=== PATIENT | female | born 1950 | race Caucasian/White ===

== ENCOUNTER → 2020-05-14 13:05 | Outpatient (CLI) | payer MEDICARE, OTHER, SELFPAY ==
--- NOTE | ~2020-05-14 | MM_ITS ---
EXAMINATION: MM screening andres BI w lori HISTORY: Screening TECHNIQUE: Craniocaudal and mediolateral oblique 3-D tomosynthesis images were obtained and synthetic 2-D images were generated. CAD analysis was submitted and interpreted. COMPARISON: Comparison to multiple prior studies sequentially, with oldest reviewed study dated 01/2014. BREAST PARENCHYMAL COMPOSITION: There are scattered areas of fibroglandular density. FINDINGS: There is no evidence of suspicious mass, calcification, or architectural distortion to sugg est malignancy in either breast. There has been no suspicious interval change. IMPRESSION: 1. No mammographic evidence of malignancy. 2. Recommend routine screening mammography in one year. BI-RADS Category 1: Negative Reviewed, dictated and finalized at location D.
== END ==
PROVIDERS: Visit Provider Physician Assistant Medical
DX: Z12.31 Encounter for screening mammogram for malignant neoplasm of breast (principal)
CPT/HCPCS: 77063; 77067

== ENCOUNTER → 2021-07-14 11:15 | Outpatient (CLI) | payer MEDICARE, OTHER, SELFPAY ==
--- NOTE | ~2021-07-14 | MM_ITS ---
EXAMINATION: MM screening andres BI w lori HISTORY: Screening mammogram, family history of breast cancer in her mother. TECHNIQUE: Craniocaudal and mediolateral oblique 3-D tomosynthesis images were obtained and synthetic 2-D images were generated. CAD analysis was submitted and interpreted. COMPARISON: 05/14/2020, 01/16/2019, 12/12/2017 BREAST PARENCHYMAL COMPOSITION: There are scattered areas of fibroglandular density. FINDINGS: There is no evidence of suspicious mass, calcification, or architectural distortion to sugg est malignancy in either breast. There has been no suspicious interval change. IMPRESSION: 1. No mammographic evidence of malignancy. 2. Recommend routine screening mammography in one year. BI-RADS Category 1: Negative Reviewed, dictated and finalized at location A.
== END ==
PROVIDERS: PCP Family Medicine; Visit Provider Family Medicine
DX: Z12.31 Encounter for screening mammogram for malignant neoplasm of breast (principal)
CPT/HCPCS: 77063; 77067

== ENCOUNTER → 2022-04-20 13:18 | Outpatient (CLI) | payer MEDICARE, OTHER, SELFPAY ==
--- NOTE | ~2022-04-20 | DEXA_ITS ---
Bone Density Report Name: TREE NUNN Age: 71 Sex: Female Ethnicity: White Date of : 1950 Indication: osteopenia; Referring Provider: Elenita Lim Study: Bone densitometry was performed. Exam Date: April 20, 2022 Accession number: [id number] Bone Density: Region BMD T-score Z-score Classification AP Spine (L1-L4) 0.807 -2.2 -0.1 Osteopenia Femoral Neck (Left) 0.720 -1.2 0.6 Osteopenia Total Hip (Left) 0.898 -0.4 1.1 Normal Femoral Neck (Right) 0.743 -1.0 0.8 Normal Total Hip (Right) 0.957 0.1 1.6 Normal Total Hip Mean 0.928 -0.2 1.4 Normal World Health Organization criteria for BMD impression classify patients as: Normal (T-score at or above -1.0), Osteopenia (T-score between -1.0 and -2.5), or Osteoporosis (T-score at or below -2.5). 10-year Fracture Risk(1): Major Osteoporotic Fracture 8.7% Hip Fracture 1.5% Reported Risk Factors: [place] (), Neck BMD=0.720, BMI=30.8, smoking (1) FRAX(R) Version 3.08. Fracture probability calculated for an untreated patient. Fracture probability may be lower if the patient has received treatment. Previous Exams: Region Exam Age BMD T-score BMD Change BMD Change Date g/cm2 vs Baseline vs Previous AP Spine(L1-L4) 04/20/2022 71 0.807 -2.2 -0.008 -0.103* 01/17/2019 68 0.910 -1.2 0.095* 0.095* 10/29/2016 65 0.815 -2.1 Total Hip(Left) 04/20/2022 71 0.898 -0.4 0.010 0.025 01/17/2019 68 0.873 -0.6 -0.015 -0.015 10/29/2016 65 0.888 -0.4 Total Hip(Right) 04/20/2022 71 0.957 0.1 0.027 0.026 01/17/2019 68 0.931 -0.1 0.001 0.001 10/29/2016 65 0.930 -0.1 *Denotes significance at 95% confidence level, LSC for AP Spine = 0.022 g/cm2, LSC for Total Hip = 0.027 g/cm2 Clinical Information Provided by Patient: Smokes Has used the following medications: Vitamin D, MULT VIT Patient maximum height was 62 Menopause Age: 47 Does not regularly consume dairy products Drinks caffeinated beverages Onset of menses at age 18 Number of children 0 Impression: The patient has low bone mass, based on the Total Spine T-score. The patient has an estimated ten-year risk of hip fracture of 1.5% and an estimated ten-year risk of major fracture of 8.7%, based on the WHO FRAX algorithm. The patient has risk factors, including: smoking. The BMD for the AP
== END ==
PROVIDERS: PCP Family Medicine; Visit Provider Physician Assistant Medical
DX: Z78.0 Asymptomatic menopausal state (principal); M85.88 Other specified disorders of bone density and structure, other site; M85.852 Other specified disorders of bone density and structure, left thigh
CPT/HCPCS: 77080

== ENCOUNTER → 2022-10-20 12:06 | Outpatient (CLI) | payer MEDICARE, SELFPAY ==
--- NOTE | ~2022-10-20 | MM_ITS ---
EXAMINATION: MM screening andres BI w lori HISTORY: Screening mammogram TECHNIQUE: Craniocaudal and mediolateral oblique 3-D tomosynthesis images were obtained and synthetic 2-D images were generated. CAD analysis was submitted and interpreted. COMPARISON: 07/14/2021, 05/14/2020, 01/26/2019 bilateral screening mammogram examinations BREAST PARENCHYMAL COMPOSITION: The breasts are almost entirely fatty. FINDINGS: There is no evidence of suspicious mass, calcification, or architectural distortion to sugg est malignancy in either breast. There has been no suspicious interval change. IMPRESSION: 1. No mammographic evidence of malignancy. 2. Recommend routine screening mammography in one year. BI-RADS Category 1: Negative Reviewed, dictated and finalized at location A. [employer]
== END ==
PROVIDERS: PCP Internal Medicine; Visit Provider Internal Medicine
DX: Z12.31 Encounter for screening mammogram for malignant neoplasm of breast (principal)
CPT/HCPCS: 77063; 77067

== ENCOUNTER 2023-03-21 14:19 | Emergency (ER) | payer MEDICARE, OTHER, SELFPAY ==
[2023-03-21 14:24] VITALS: BP 136/67; PULSE 75; RESP 15; TEMP 36.8; O2SAT 100
--- NOTE | 2023-03-21 14:30 | ED.GENADULT ---
HPI - General Adult General Chief complaint: Upper Respiratory Infection Stated complaint: wants covid test Time Seen by Provider: 03/21/23 14:30 History of Present Illness HPI narrative: Patient is a 72-year-old female who presents the ER for evaluation of possible COVID. recently tested positive for COVID and she had been visiting him in the hospital. No runny nose or sore throat or productive cough. No chest pain or chest pressure. She is fully vaccinated against COVID. Related Data Home Medications Medication Instructions Recorded Confirmed bimatoprost 0.01 % eye drops 1 drp EACH EYE QPM 06/28/22 ([facility]) timolol maleate 0.25 % eye drops 1 drp EACH EYE QAM 06/28/22 Allergies Allergy/AdvReac Type Severity Reaction Status Date / Time Penicillins Allergy Unknown Unknown Verified 06/28/22 11:07 Review of Systems Review of Systems: All systems reviewed & are unremarkable except as noted in HPI and below Constitutional: Constitutional: Denies chills, Denies fatigue and Denies fever(s) ENT: Denies nasal congestion and Denies sore throat Respiratory: Respiratory: Denies cough and Denies dyspnea Gastrointestinal: Gastrointestinal: Denies abdominal pain, Denies nausea and Denies vomiting [facility] Past Medical History Medical History (Updated 03/21/23 @ 15:42 by Francis Mehta MD) BMI 28.0-28.9,adult BMI 29.0-29.9,adult Glaucoma Insomnia, unspecified Mixed hyperlipidemia Nonalcoholic fatty liver disease 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 steatohepatitis (MORALES) Post-menopausal Tobacco abuse Vitamin D deficiency Family History Family History Sibling Family history of premature coronary heart disease Blockage of coronary artery of heart Mother Cerebrovascular accident Family history of diabetes mellitus in first degree relative Diabetes mellitus Dialysis patient Father Emphysema of lung Pneumonia Social History Social History (Updated 06/28/22 @ 11:14 by Nat Prasad) Social History: Caffeine-coffee daily Years smoked: 30 Smoking status: Current every day smoker Tobacco type: cigarettes Second hand tobacco smoke exposure: Yes Alcohol intake: current Alcohol use details: Wine 1 to 2 Substance use: current Substance use type: marijuana Other substance usage details: occasionally Living arrangements: with family Additional living arrangements comments: Occupation/Education: retired Gender identity (if verbalized by the patient): Female Sexual Orientation (if Verbalized by the Patient): Straight or Heterosexual Spiritual care concerns: No Agree to blood products: Yes Exam Narrative: GENERAL: Well-appearing, well-nourished, and in no acute distress. HEAD: Normocephalic, atraumatic. CHEST: Clear to auscultation. No respiratory distress. HEART: Regular rate and rhythm. Normal peripheral pulses. EXTREMITIES: Normal range of motion. No edema. SKIN: Warm, dry, no rash. NEURO: Alert and oriented x3. PSYCH: Normal mood and affect. Course Course Emergency Course: Patient informed of results. Educated on treatment plan. Discharge home. Vital Signs Vital signs: Vital Signs Temperature 98.3 F 03/21/23 14:24 Pulse Rate 75 03/21/23 14:24 Respiratory Rate 15 03/21/23 14:24 Blood Pressure 136/67 03/21/23 14:24 Pulse Oximetry 100 03/21/23 14:24 Oxygen Delivery Room Air 03/21/23 14:24 Temperature 98.3 F 03/21/23 14:24 Pulse Rate 75 03/21/23 14:24 Respiratory Rate 15 03/21/23 14:24 Blood Pressure 136/67 03/21/23 14:24 Pulse Oximetry 100 03/21/23 14:39 Oxygen Delivery Room Air 03/21/23 14:39 Medical Decision Making Vital Signs Vital Signs: Vital Signs Temperature 98.3 F 03/21/23 14:24 Pulse Rate 75 03/21/23 14:24 Respiratory Rate 15 03/21/23 14:24 Blood Pressure 136/67 03/21/23 14:24 Pulse Oximetry
[2023-03-21 14:39] VITALS: O2SAT 100
[2023-03-21 15:06] LABS: Influenza A QL RT-PCR Negative (Negative); Influenza B QL RT-PCR Negative (Negative); SARS-CoV-2 RNA PCR Positive (Negative)
== END 2023-03-21 15:54 | disposition home or self-care (01) ==
PROVIDERS: Emergency Provider Emergency Medicine; PCP Internal Medicine
DX: U07.1 COVID-19 (principal); E78.2 Mixed hyperlipidemia; H40.9 Unspecified glaucoma; K75.81 Nonalcoholic steatohepatitis (NASH); E55.9 Vitamin D deficiency, unspecified; F17.210 Nicotine dependence, cigarettes, uncomplicated
CPT/HCPCS: 87636; 99283

== ENCOUNTER 2024-09-12 14:11 | Outpatient (NON) | payer MEDICARE, OTHER, SELFPAY ==
[2024-09-12 19:49] LABS: Add Urine Microscopic? YES; Appearance Urine Cloudy (Clear); Bilirubin Urine Negative (Negative); Blood Urine Trace (Negative); Color Urine Yellow (Yellow); Glucose Urine UA Negative (Negative); Ketones Urine Negative (Negative); Leukocyte Esterase Ur 3+ LEU/UL (Negative); Nitrate Urine Negative (Negative); Protein Urine Negative (Negative); Specific Grav Ur 1.008 (1.001-1.035); Urobilinogen Urine 0.2 mg/dL (<2.0); pH Urine 6.5 (5.0-9.0)
[2024-09-12 19:52] LABS: Bacteria Urine None Seen /hpf; Non Pathogenic Casts 0-2; RBC Urine 0-2 /hpf (0-2); Squamous Epithelial Cell Urine None Seen /hpf (Few); WBC Urine >100 /hpf (0-3)
== END 2024-09-12 14:12 | disposition home or self-care (01) ==
LOC: ANHGOSHLAB 14:12
PROVIDERS: PCP Clinical Nurse Specialist; Visit Provider Clinical Nurse Specialist
DX: R39.9 Unspecified symptoms and signs involving the genitourinary system (principal)
CPT/HCPCS: 81001; 87077; 87086; 87186

== ENCOUNTER 2025-04-10 15:07 | Outpatient (CLI) | payer MEDICARE, OTHER, SELFPAY ==
--- NOTE | ~2025-04-10 | MM_ITS ---
EXAMINATION: MM screening andres BI w lori HISTORY: Screening mammogram, family history of breast cancer in her mother. TECHNIQUE: Craniocaudal and mediolateral oblique 3-D tomosynthesis images were obtained and synthetic 2-D images were generated. CAD analysis was submitted and interpreted. COMPARISON: 10/20/2022, 07/14/2021, 05/14/2021 BREAST PARENCHYMAL COMPOSITION:Not Dense. The breasts are almost entirely fatty FINDINGS: No suspicious mass, calcification, or architectural distortion are identified in either tonia ast to suggest malignancy. There has been no suspicious interval change. IMPRESSION: No mammographic evidence of malignancy. Recommend routine screening mammography in one year. BI-RADS Category 1: Negative Reviewed, dictated and finalized at location .
== END 2025-04-10 15:08 | disposition home or self-care (01) ==
LOC: MICIMG 15:07
PROVIDERS: PCP Clinical Nurse Specialist; Visit Provider Clinical Nurse Specialist
DX: Z12.31 Encounter for screening mammogram for malignant neoplasm of breast (principal)
CPT/HCPCS: 77063; 77067

== ENCOUNTER 2025-06-26 10:09 | Outpatient (CLI) | payer MEDICARE, OTHER, SELFPAY ==
--- NOTE | ~2025-06-26 | US_ITS ---
ULTRASOUND ABDOMEN LIMITED (RIGHT UPPER QUADRANT) Clinical History: R74.8 - Abnormal levels of other serum enzymes Comparison: CT abdomen 10/25/2019 Technique: Right upper quadrant sonography Findings: Liver: Normal size. Echogenic. No intrahepatic biliary ductal dilatation. Normal hepatopedal flow main portal vein. Common Duct: 7 mm. Gallbladder: No stones. No wall thickening. No pericholecystic fluid. Pancreas: Unremarkable as visualized. Retrohepatic IVC: Unremarkable. IMPRESSION: 1. Hepatic steatosis and/or diffuse hepatocellular disease. 2. No acute abnormality. Reviewed, dictated and finalized at location R.
--- OUTSIDE RECORDS SUMMARY | 2025-06-26 11:19 | XMS_ITS | Clinical Summary ---
Author Organization [facility] [employer] Address [address] [place] [address] Care Team Providers Care Government Program Manager Name Role Phone Rafael Lowe MD Primary Care Provider [phone] Source Comments [facility] [employer],non-owned Affiliates and Associated Physician Practices is amultiple site organization consisting of ambulatory clinics and hospital sitesin [place], [place], [place] and [place]. This disclosure is being madepursuant to the Care Everywhere program and may not contain all information available regarding this patient. Last updated 18.[facility] [employer] Allergies Active Allergy Reactions Criticality Noted Date Comments Penicillins Rash Medium 12/08/2015 Medications * Be aware that medications may not be up to date on this document. Alwaysverify current medications with the patient. halobetasol (ULTRAVATE) 0.05 % cream Apply 1 applicator to affected area BID. 7 Active vitamin E (TOCOPHERYL) 400 UNIT capsule Take 800 Units by mouth DAILY. 30 capsule 7 Active atorvastatin (LIPITOR) 10 MG tablet Take 40 mg by mouth at bedtime 8 Active LUMIGAN 0.01 % ophth solution 8 Active fenofibrate micronized (ANTARA) 130 MG capsule Take 130 mg by mouth once daily 8 Active timolol gel-forming (TIMOPTIC-XE) 0.25 % ophthalmic gel-forming 8 Active Cholecalciferol (VITAMIN D-3) 1000 UNITS Take by mouth once daily Active Multiple Vitamins-Minera ls (MULTIVITAMIN ADULT PO) Take by mouth once daily Active [place]-3 Fatty Acids (FISH OIL) 1200 MG Take by mouth once daily Active GARLIC PO Take 1,000 mg by mouth once daily Active Active Problems Problem Noted Date Diagnosed Date Psoriasis 08/29/2017 Overview (08/25/2018): Overview: Or eczema. Palms of hands. Overweight 12/08/2015 Hyperlipidemia 12/08/2015 Glaucoma 12/08/2015 NAFLD (nonalcoholic fatty liver disease) 016 Overview (12/17/2019): Overview: 11/05/15 [place] ([place] diffuse fatty liver 08/29/17 Fibroscan CAP 291, E 7.0 kPa 08/28/18 Fibroscan CAP 354, E 5.4 kPa dwp 12/17/19 Fibroscan CAP 320, LSM 6.4 kPa dwp Family History Medical History Relation Name Comments Cancer Brother prostate CVA Mother Cancer Mother lymph nodes Diabetes Mother Heart Disease Mother COPD - Chronic Obstructive Pulmonary Disease Sister 1 Thyroid Disease Sister 2 Relation Name Status Comments Brother Mother Sister 1 Sister 2 Social History Tobacco Use Types Packs/Day Years Used Date Smoking Tobacco: Every Day Cigarettes 0.5 40 Smokeless Tobacco: Never Tobacco Cessation:Ready to Q uit: No; Counseling Given: Yes Alcohol Use Standard Drinks/Week Comments No 0 (1 standard drink = 0.6 oz pur e alcohol) Comments Unknown Sex and Gender Information Value Date Recorded Sex Assigned at Not on file Legal Sex 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 MECHANIC Gender Identity Not on file Sexual Orientation Not on file Last Filed Vital Signs Vital Sign Reading Time Taken Comments Blood Pressure 133/76 12/17/2019 10:24 AM CDT Pulse 68 12/17/2019 10:24 AM CDT Temperature 36.7 C (98 F) 12/17/2019 10:24 AM CDT Respiratory Rate 18 12/17/2019 10:24 AM CDT Oxygen Saturation 98% 12/17/2019 10:24 AM CDT Inhaled Oxygen Concentration - - Weight 70.1 kg (154 lb 9.6 oz) 12/17/2019 10:24 AM CDT Height 157.5 cm (5' 2) 12/17/2019 10:24 AM CDT Body Mass Index 28.28 12/17/2019 10:24 AM CDT Plan of Treatment Health Maintenance Due Date Last Done Comments BONE DENSITY TESTING 1950 COLOGUARD (AGES 45-75) - COL ON CA SCREENING 1950 COLON MONITORING 1950 COLONOSCOPY - COLON CA SCREENING 1950 CT COLONOGRAPHY - COLON CA SCREENING 1950 Colorectal Cancer Screening 1950 FIT - COLON CA SCREENING 1950 FLEX SIG - COLON CA SCREENING 1950 MAMMOGRAM 1950 HEPATITIS C SCREENING 11/17/1970 DTAP/TDAP/TD VACCINES (1 - Tdap) 1971 PNEUMOCOCCAL VACCINE 50+ (1 of 1 - PCV) 2002 ZOSTER VACCINE (1 of 2) 2002 SCREENING FOR DIABETES 12/06/2022 0, 06/15/2017 DEPRESSION SCREENING 10/10/2024 COVID-19 VACCINE (1 - 2023-2 5 season) 2025 INFLUENZA VACCINE (#1) 2025 Respiratory Syncytial Virus (RSV) Vaccine Pt: or over 60 yrs (1 - 1-dose 75+ series) 2027 HEPATITIS B VACCINE Aged Out No longe r eligible based on patient's age to complete this topic HIB VACCINE Aged Out No longer eligi ble based on patient's age to complete this topic HPV VACCINE Aged Out No longer eligi ble based on patient's age to complete this topic MENINGOCOCCAL (Group B) VACCINE SHARED DECISION-MAKING Aged Out No longer eligible based on patient's age to complete this topic MENINGOCOCCAL GROUPS A/C/Y/W VACCINE Aged Out No longer eligible b ased on patient's age to complete this topic Goals Goal Patient Goal Type Associated Problems Recent Progress Patient-Stated? Author Medication Management General On track( 020 10:37 AM CDT) No Forrest Miller, RN Note: Expected end date: Interventions: Take all medications as prescribed Let your doctor know right away about any changes in your medications Make sure to request a refill of your medication at least one week prior to your last dose Procedures Procedure Name Priority Date/Time Associated Diagnosis Comments COMPREHENSIVE METABOLIC PANEL Routine 12/06/2019 9:38 AM LAYOUT MECHANIC NAFLD (nonalcoholic fatty liver disease) from Last 3 Months or Most Recently Relevant to Health Maintenance Results * (ABNORMAL) COMPREHENSIVE METABOLIC PANEL (12/06/2019 9:38 AM LAYOUT MECHANIC) Glucose 100(H) 65 - 99 mg/dL [facility] INSURANCE BILL BUN 16 8 - 27 mg/dL [facility] INSURANCE BILL Creatinine 0.86 0.57 - 1.00 mg/dL [facility] INSURANCE BILL eGFR by MDRD 70 >59 mL/min/1.7 3 [facility] INSURANCE BILL eGFR by MDRD 81 >59 mL/min/1.7 3 [facility] INSURANCE BILL BUN/Creatinine Ratio 19 12 - 28 [facility] INSURANCE BILL Sodium 142 134 - 144 mmol/L [facility] INSURANCE BILL Potassium 4.5 3.5 - 5.2 mmol/L [facility] INSURANCE BILL Chloride 102 96 - 106 mmol/L [facility] INSURANCE BILL CO2 26 20 - 29 mmol/L [facility] INSURANCE BILL Calcium 9.6 8.7 - 10.3 mg/dL [facility] INSURANCE BILL Protein Total 6.9 6.0 - 8.5 g/dL [facility] INSURANCE BILL Albumin 4.4 3.8 - 4.8 g/dL [facility] INSURANCE BILL Globulin Total 2.5 1.5 - 4.5 g/dL [facility] INSURANCE BILL Albumin/Globulin Ratio 1.8 1.2 - 2.2 [facility] INSURANCE BILL Bilirubin Total 0.3 0.0 - 1.2 mg/dL [facility] INSURANCE BILL Alkaline Phosphatase 92 39 - 117 IU/L [facility] INSURANCE BILL AST 36 0 - 40 IU/L [facility] INSURANCE BILL ALT 53(H) 0 - 32 IU/L [facility] INSURANCE BILL Blood BLOOD SPECIMEN / Unknown 12/06/2019 9:38 AM LAYOUT MECHANIC 12/06/2019 Narrative Resulting Agency Comment Lab Testing performed at: [facility] [address] [id number] [place] Manas Anne MD LAB - CHEMISTRY OR DERABLES Final Result [facility] INSURANCE BILL [address] [place] [address] from Last 3 Months or Most Recently Relevant to Health Maintenance Insurance MEDICARE MEDICARE SUPPLEMENT PAYOR GENERIC MEDICARE Care Teams Government Program Manager Relationship Specialty Start Date End Date Rafael Lowe MD [address] [place] [address] PCP - General 12/01/15
--- OUTSIDE RECORDS SUMMARY | 2025-06-26 11:19 | XMS_ITS | Clinical Summary ---
Author Organization [facility] Address [address] [place] [address] Care Team Providers Care Bevel Mill Operator Name Role Phone Unavailable Primary Care Provider Unavailabl e Social History Tobacco Use Types Packs/Day Years Used Date Smoking Tobacco: Never Assessed Comments Unknown Sex and Gender Information Value Date Recorded Sex Assigned at Not on file Legal Sex Female 6:31 PM CDT Gender Identity Not on file Sexual Orientation Not on file Plan of Treatment Health Maintenance Due Date Last Done Comments Colorectal Cancer Screening Colonoscopy (10 Years) 1952 Hepatitis C 1970 DTaP, Tdap and Td Vaccines ( 1 - Tdap) 1971 Mammogram Screening 1992 Pneumococcal Vaccine: 50+ Ye ars (1 of 1 - PCV) 2002 Zoster Vaccines (1 of 2) 2002 Dexa Scan (General) 2017 COVID-19 Vaccine (2023-2 5 season) 2025 RSV Immunization or 60+ Years (1 - 1-dose 75+ series) 2027 Meningococcal B Vaccine Aged Out No l onger eligible based on patient's age to complete this topic Meningococcal Vaccine Aged Out No frances azeem eligible based on patient's age to complete this topic RSV Immunizations Under 20 Months Aged Out No longer eligible based on patient's age to complete this topic
== END 2025-06-26 10:10 | disposition home or self-care (01) ==
PROVIDERS: PCP Clinical Nurse Specialist; Visit Provider Nurse Practitioner Family
DX: K76.0 Fatty (change of) liver, not elsewhere classified (principal); K76.89 Other specified diseases of liver; R74.8 Abnormal levels of other serum enzymes
CPT/HCPCS: 76705

== ENCOUNTER 2025-07-22 12:50 | Outpatient (CLI) | payer MEDICARE, OTHER, SELFPAY ==
--- NOTE | ~2025-07-22 | DEXA_ITS ---
Bone Density Report Name: TREE NUNN Age: 74 Sex: Female Ethnicity: White Date of : 1950 Indication: osteopenia; Referring Provider: ADEOLA PANDYA Study: Bone densitometry was performed. Exam Date: July 22, 2025 Accession number: [id number] Bone Density: Region BMD T-score Z-score Classification AP Spine(L1-L4) 0.876 -1.6 0.7 Osteopenia Femoral Neck (Left) 0.668 -1.6 0.3 Osteopenia Total Hip (Left) 0.948 0.0 1.7 Normal Femoral Neck (Right) 0.734 -1.0 0.9 Normal Total Hip (Right) 1.013 0.6 2.2 Normal Total Hip Mean 0.981 0.3 2.0 Normal World Health Organization criteria for BMD impression classify patients as: Normal (T-score at or above -1.0), Osteopenia (T-score between -1.0 and -2.5), or Osteoporosis (T-score at or below -2.5). 10-year Fracture Risk(1): Major Osteoporotic Fracture 11% Hip Fracture 3.1% Reported Risk Factors: [place] (), Neck BMD=0.668, BMI=31.8, smoking (1) FRAX(R) Version 3.08. Fracture probability calculated for an untreated patient. Fracture probability may be lower if the patient has received treatment. Previous Exams: Region Exam Age BMD T-score BMD Change BMD Change Date g/cm2 vs Baseline vs Previous AP Spine (L1-L4) 07/22/2025 74 0.876 -1.6 0.070 (8.6%)* 0.070 (8.6%)* 04/20/2022 71 0.807 -2.2 Total Hip(Left) 07/22/2025 74 0.948 0.0 0.050 (5.6%)* 0.050 (5.6%)* 04/20/2022 71 0.898 -0.4 Total Hip(Right) 07/22/2025 74 1.013 0.6 0.057 (5.9%)* 0.057 (5.9%)* 04/20/2022 71 0.957 0.1 *Denotes significance at 95% confidence level, LSC for AP Spine = 0.022 g/cm2, LSC for Total Hip = 0.027 g/cm2 Clinical Information Provided by Patient: Smokes Has used the following medications: Vitamin D Patient maximum height was 62.0 Menopause Age: 47 No regular weight bearing exercise Does not regularly consume dairy products Drinks caffeinated beverages Onset of menses at age 18 Number of children 0 Impression: The patient has low bone mass, based on the Total Spine T-score. The patient has an estimated ten-year risk of hip fracture of 3.1% and an estimated ten-year risk of major fracture of 11%, based on the WHO FRAX algorithm. The patient has risk factors, including: smoking. No significant bone loss was observed. Discussion: BONE DENSITY IS LOW AT ONE OR MORE SKELETAL SITES. THE PATIENT'S BMD AND CLINICAL RISK FACTORS CONTRIBUTE TO THIS PATIENT'S INCREASED RISK OF FRACTURE. This patient's lowest T-score is low at one or more skeletal sites. It meets the World Health Organization's (WHO) criteria for ?low bone mass? (T-score between -1.0 and -2.5). The patient's 10-year risk of hip fracture as calculated by FRAX exceeds the threshold where pharmacological therapy is recommended by the National Osteoporosis Foundation (NOF). However, all treatment decisions require clinical judgment and consideration of individual patient factors, including patient preferences, comorbidities, previous drug use, risk factors not captured in the FRAX model (e.g., frailty, falls, vitamin D deficiency, increased bone turnover, interval significant decline in bone density) and possible under or overestimation of fracture risk by FRAX. The patient should follow a healthful lifestyle (good nutrition with adequate calcium and vitamin D, and appropriate weight-bearing exercise). Follow-Up: Consider a repeat BMD and Vertebral Fracture Assessment (VFA) exam in 2 years or sooner if medically necessary, to reassess this patient's status. Reported by: ARTURO on 07/22/2025 1:29:00 PM. Reviewed, dictated and finalized at location A.
--- OUTSIDE RECORDS SUMMARY | 2025-07-22 13:51 | XMS_ITS | Clinical Summary ---
Author Organization [facility] Address [address] [place] [address] Care Team Providers Care Paralegal Instructor Name Role Phone Rafael Lowe MD Primary Care Provider [phone] Source Comments [facility],non-owned Affiliates and Associated Physician Practices is amultiple site organization consisting of ambulatory clinics and hospital sitesin [place] and [place]. This disclosure is being madepursuant to the Care Everywhere program and may not contain all information available regarding this patient. Last updated 18.[facility] Allergies Active Allergy Reactions Criticality Noted Date [...] PO) Take by mouth once daily Active [place]-3 Fatty Acids (FISH OIL) 1200 MG Take by mouth once daily Active GARLIC PO Take 1,000 mg by mouth once daily Active Active Problems Problem Noted Date Diagnosed Date Psoriasis 08/29/2017 Overview (08/25/2018): Overview: Or eczema. Palms of hands. Overweight 12/08/2015 Hyperlipidemia 12/08/2015 Glaucoma 12/08/2015 NAFLD (nonalcoholic fatty liver disease) 016 Overview (12/17/2019): Overview: 11/05/15 [place] ([place]): diffuse fatty liver 08/29/17 Fibroscan CAP 291, [...] on file Legal Sex Female 6:25 PM TRUST ADVISOR Gender Identity Not on file Sexual Orientation [...] COMPREHENSIVE METABOLIC PANEL Routine 12/06/2019 9:38 AM TRUST ADVISOR NAFLD (nonalcoholic fatty liver disease) from Last 3 Months or Most Recently Relevant to Health Maintenance Results * (ABNORMAL) COMPREHENSIVE METABOLIC PANEL (12/06/2019 9:38 AM TRUST ADVISOR) Glucose 100(H) 65 - 99 mg/dL [facility] [...] BLOOD SPECIMEN / Unknown 12/06/2019 9:38 AM TRUST ADVISOR 12/06/2019 Narrative Resulting Agency Comment Lab Testing performed at: [facility] [address] [id number] [place] Manas Anne MD LAB - CHEMISTRY OR DERABLES Final Result [facility] INSURANCE BILL [address] [place] [address] from Last 3 Months or Most Recently Relevant to Health Maintenance Insurance MEDICARE MEDICARE SUPPLEMENT PAYOR GENERIC MEDICARE Care Teams Paralegal Instructor Relationship Specialty Start Date End Date Rafael Lowe MD [address] [place] [address] PCP - General 12/01/15
--- OUTSIDE RECORDS SUMMARY | 2025-07-22 13:51 | XMS_ITS | Clinical Summary ---
Author Organization [facility] Address [address] [place] [address] Care Team Providers Care Security Researcher Name Role Phone Unavailable Primary Care Provider [...] 2017 COVID-19 Vaccine (2023-2 5 season) 2025 Influenza Adult (#1) 2025 RSV Immunization or 60+ Years (1 [...]
== END 2025-07-22 12:51 | disposition home or self-care (01) ==
LOC: ANHFOHIMG 12:51
PROVIDERS: PCP Clinical Nurse Specialist; Visit Provider Clinical Nurse Specialist
DX: Z78.0 Asymptomatic menopausal state (principal); M85.88 Other specified disorders of bone density and structure, other site; M85.852 Other specified disorders of bone density and structure, left thigh
CPT/HCPCS: 77080

== ENCOUNTER 2025-08-06 14:12 | Outpatient (CLI) | payer MEDICARE, OTHER, SELFPAY ==
--- OUTSIDE RECORDS SUMMARY | 2010-05-29 07:30 | XMS_ITS | Continuity of Care Document ---
Author Organization [facility] Address [address] [place] [address] Phone Care Team Providers Care Wire Spring Relay Adjuster Name Role Phone Wicho Mayberry Unavailable Unavailable Procedures Procedure Date Office/outpatient Visit, Est Post-op Follow-up Visit Office/outpatient Visit, Est Laser Surgery Of Eye Office/outpatient Visit, Est Office/outpatient Visit, Est Office/outpatient Visit, Est Fundus Photography W/ Report Visual Field Examination(s) Office/outpatient Visit, Est Refraction Office/outpatient Visit, Est Visual Field Examination(s) Eye Exam Established Pt Office/outpatient Visit, Est Fundus Photography W/ Report Office/outpatient Visit, Est Corneal Pachymetry Advance Directives Directive Yes / No Effective Date File Name No Information Encounters Encounter Description Practice Location Reason(s) For Visit Diagnoses Date Provider Providers Copied on Encounter Office/outpat ient Visit, [facility], [address], [place], [place], [id number], [place] tel:[phone] [facility] No Information 0-201 0 Jefe Sands. [address] , [address], [place], [address], [place]. tel:[phone] [facility], [address] [place] [address] [address], [place], [place], [id number], [place] tel:[phone] [facility] No Information Apr-0 2-201 0 Doisy Edward. [address] , [address], [place], [place], [facility], [place]. tel:[phone] Office/outpat ient Visit, [facility], [address] [place] [address] [address], [place], [place], [id number], [place] tel:[phone] [facility] No Information Mar-1 2-201 0 Doisy Edward. [address] , [address], [place], [place], [facility], [place]. tel:[phone] [facility], [address] [place] [address] [address], [place], [place], [id number], [place] tel:[phone] [facility] No Information Mar-0 2-201 0 Doisy Edward. [address] , [address], [place], [place], [facility], [place]. tel:[phone] Office/outpat ient Visit, [facility], [address] [place] [address] [address], [place], [place], [id number], [place] tel:[phone] [facility] No Information Fe- 9-201 0 Doisy Edlucero. [address] , [address], [place], [place], [facility], [place]. tel:[phone] Office/outpat ient Visit, [facility], [address] [place] [address] [address], [place], [place], [id number], [place] tel:[phone] [facility] No Information Jul-2 3-200 9 Doisy Edlucero. [address] , [address], [place], [place], [facility], [place]. tel:[phone] Office/outpat ient Visit, Est [facility], [address], [place], [place], [address], [place] tel:[phone] [facility] [place] No Information 2[address] Jefe Sands. [address] [place] [address] Center , [address], [place], [facility], . tel:[phone] Referring Provider: Wicho Woods, [facility] [address], [place], [facility]. tel:[phone] [facility], [address] [place] [address] [address], [place], [place], [address], [place] tel:[phone] [facility] [place] No Information 9 Jefe Sands. [address] [place] [address] Center , [address], [place], [facility], [place]. tel:[phone] Referring Provider: Wicho Woods, [facility] [address], [place], [facility]. tel:[phone] [facility]pat ient [facility], [facility], [address] [place] [address] [address], [place], [place], [address], [place] tel:[phone] [facility] [place] No Information 3200 8 Jefe Sands. [facility] Center , [address], [place], [facility], [place]. tel:[phone] Office/outpat ient Visit, [facility], [address] [place] [address] [address], [place], [place], [id number], [place] tel:[phone] [facility] [place] No Information 3-200 8 Jefe Sands. [address] [place] [address] Center , [address], [place], [facility], [place]. tel:[phone] [facility], [address], [place], [place], [address], tel:[phone] [facility] No Information Nov-0 7-200 8 Jefe Sands. [facility] [address], [place], [facility], . tel:[phone] Referring Provider: Bonita Manley [facility] [address], [place], [facility]. tel:[phone] [facility], [address] [place] [address] [address], [place], [place], [address], tel:[phone] [facility] [place] No Information 2-200 7 Jefe Sands. [address] [place] [address] [address], [place], [facility], . tel:[phone] Office/outpat ient Visit, [facility], [address] [place] [address] [address], [place], [place], [address], tel:[phone] [facility] No Information 3-200 7 Jefe Sands. [address] [place] [address] [address], [place], [facility], . tel:[phone] Referring Provider: Bonita Manley [facility] [address], [place], [facility]. tel:[phone] Office/outpat ient Visit, [facility], [address] [place] [address] [address], [place], [place], [id number], tel:[phone] [facility] No Information 0 2-200 7 Jefe Sands. [facility] [address], [place], [facility], . tel:[phone] Referring Provider: Bonita Manley [facility] [address], [place], [facility]. tel:[phone] Family History Family Member Type Diagnosis Age At Onset No Information Payers Payer name Insurance type Covered alliance party ID Authoriza tion(s) No Information Social History Type Description Quantity Date Captured Comments Sex Female Smoking Status No Information Chief Complaint And Reason For Visit No Information Reason For Referral Reason For Referral No Information History Of Present Illness Encounter Date Complaint History Of Prese nt Illness No Information Functional Status Date Functional Assessmen t No Information Instructions Date Instruction Additional Infor mation No Information Assessments Type Assessment Date No Information Patient Care Teams Name Effective Dates (start - stop) Status Members No Information
--- OUTSIDE RECORDS SUMMARY | 2025-08-06 16:29 | XMS_ITS | Clinical Summary ---
Author Organization [facility] [employer] Address [address] [place] [address] Care Team Providers Care Surveyor Chain Helper Name Role Phone Rafael Lowe MD Primary Care Provider [phone] Source Comments [facility] [employer],non-owned Affiliates and Associated Physician Practices is amultiple site organization consisting of ambulatory clinics and hospital sitesin [place], [place], [place] and [place]. This disclosure is being madepursuant to the Care Everywhere program and may not contain all information available regarding this patient. Last updated 18.[facility] [employer] Allergies Active Allergy Reactions Criticality Noted Date [...] PO) Take by mouth once daily Active [place]-3 Fatty Acids (FISH OIL) 1200 MG Take by mouth once daily Active GARLIC PO Take 1,000 mg by mouth once daily Active Active Problems Problem Noted Date Diagnosed Date Psoriasis 08/29/2017 Overview (08/25/2018): Overview: Or eczema. Palms of hands. Overweight 12/08/2015 Hyperlipidemia 12/08/2015 Glaucoma 12/08/2015 NAFLD (nonalcoholic fatty liver disease) 016 Overview (12/17/2019): Overview: 11/05/15 [place] ([place]): diffuse fatty liver 08/29/17 Fibroscan CAP 291, [...] on file Legal Sex Female 6:25 PM ABSORPTION AND ADSORPTION ENGINEER Gender Identity Not on file Sexual Orientation [...] COMPREHENSIVE METABOLIC PANEL Routine 12/06/2019 9:38 AM ABSORPTION AND ADSORPTION ENGINEER NAFLD (nonalcoholic fatty liver disease) from Last 3 Months or Most Recently Relevant to Health Maintenance Results * (ABNORMAL) COMPREHENSIVE METABOLIC PANEL (12/06/2019 9:38 AM ABSORPTION AND ADSORPTION ENGINEER) Glucose 100(H) 65 - 99 mg/dL [facility] [...] BLOOD SPECIMEN / Unknown 12/06/2019 9:38 AM ABSORPTION AND ADSORPTION ENGINEER 12/06/2019 Narrative Resulting Agency Comment Lab Testing performed at: [facility] [address] [id number] us Manas Anne MD LAB - CHEMISTRY OR DERABLES Final Result [facility] INSURANCE BILL [address] [place] [address] from Last 3 Months or Most Recently Relevant to Health Maintenance Insurance MEDICARE MEDICARE SUPPLEMENT [place] [address] Care Teams Surveyor Chain Helper Relationship Specialty Start Date End Date Rafael Lowe MD [address] [place] [address] PCP - General 12/01/15
--- OUTSIDE RECORDS SUMMARY | 2025-08-06 16:30 | XMS_ITS | Clinical Summary ---
Author Organization [facility] Address [address] [place] [address] Care Team Providers Care Capsule Machine Operator Name Role Phone Unavailable Primary Care [...] 2002 Dexa Scan (General) 2017 COVID-19 Vaccine ( - 2024-2 6 season) 2025 Influenza Adult (#1) 2025 RSV Immunization or 60+ Years (1 - 1-dose 75+ series) 2027 Hepatitis A Vaccines Aged Out No long er eligible based on patient's age to complete this topic Meningococcal B Vaccine Aged Out No l onger eligible based on patient's age to complete this topic Meningococcal Vaccine Aged Out No frances azeem eligible based on patient's age to complete this topic RSV Immunizations Under 20 Months Aged Out No longer eligible based on patient's age to complete this topic
[2025-08-06 19:14] LABS: Add Urine Microscopic? YES; Appearance Urine Cloudy (Clear); Glucose Urine UA Negative (Negative); Leukocyte Esterase Ur 2+ LEU/UL (Negative); Nitrate Urine Negative (Negative); Non Pathogenic Casts 0-2; Specific Grav Ur 1.012 (1.001-1.035)
== END 2025-08-06 14:13 | disposition home or self-care (01) ==
LOC: ANHGOSHLAB 14:14
PROVIDERS: PCP Clinical Nurse Specialist
DX: R39.9 Unspecified symptoms and signs involving the genitourinary system (principal)
CPT/HCPCS: 81001; 87086